=== PATIENT | male | born 1955 | race Caucasian/White ===

== ENCOUNTER 2018-01-08 11:40 | Emergency (ER) | payer MEDICAID ==
[~2018-01-08] VITALS: Ht 182.9 cm; Wt 100.0 kg
[2018-01-08 12:19] VITALS: BP 119/65; PULSE 79; RESP 16; TEMP 98.1; O2SAT 99
[2018-01-08] MEDS ORDERED: TEMA7.5C9 PO (12:34)
[2018-01-08] MEDS ORDERED: ASPI-516 CHEW (12:34)
[2018-01-08] MEDS ORDERED: PREG25 PO (12:34)
[2018-01-08] MEDS ORDERED: SIMV5TAB3 PO (12:34)
[2018-01-08] MEDS ORDERED: CYCL5TAB PO (12:34)
[2018-01-08] MEDS ORDERED: CITA10TA4 PO (12:34)
[2018-01-08] MEDS ORDERED: JANU50TA8 PO (12:35)
[2018-01-08] MEDS ORDERED: LANTUS2P SQ (12:37)
--- NOTE | 2018-01-08 13:03 | PD ---
HPI Chief Complaint: Skin Problem Time Seen by Provider: 12:54 Travel History International Travel<30 days: No Contact w/Intl Traveler<30days: No Traveled to known affect area: No History of Present Illness HPI 62-year-old male presents to the ED for evaluation of 2 day history of stinging , burning, erythematous vesicular rash of the right hip. Patient states the pain is burning, rated 8/10. No alleviating or exacerbating factors reported. Patient denies numbness, tingling, weakness, limitations of range of motion, or injury to the extremity. Denies fever, chills, nausea, vomiting. He endorses history of chickenpox in childhood. He has not received the shingles vaccination. REPLACED BY [facility] Social History Tobacco Use: No Allergies-Medications (Allergen,Severity, Reaction): Coded Allergies: acetaminophen (Verified Allergy, Severe, Anaphylaxis, 01/08/18) Reported Meds & Prescriptions Reported Meds & Active Scripts Active Valacyclovir (Valacyclovir HCl) 1,000 Mg Tab 1,000 Mg PO TID 7 Days Reported Lantus Inj (Insulin Glargine) 1,000 Unit/10 Ml Vial 34 Units SQ HS Janumet (Sitagliptin-Metformin) 50-1,000 Mg Tab 1 Tab PO BID Restoril (Temazepam) 7.5 Mg Cap 7.5 Mg PO HS PRN Flexeril (Cyclobenzaprine HCl) 5 Mg Tab 5 Mg PO TID Citalopram (Citalopram Hydrobromide) 10 Mg Tab 10 Mg PO DAILY Simvastatin 5 Mg Tab 5 Mg PO DAILY Aspirin 81 Mg Chew 81 Mg CHEW DAILY Lyrica (Pregabalin) 25 Mg Cap 25 Mg PO TID NEB Review of Systems Except as stated in HPI: all other systems reviewed are Neg Physical Exam Narrative GENERAL: Well-nourished, well-developed white male in no acute distress. SKIN: Focused skin assessment warm/dry. There is a coin shaped field of erythema over the right hip upon which several vesicles are present. There are a few single vesicles and crusts scattered over the upper leg. HEAD: Normocephalic. EYES: No scleral icterus. No injection or drainage. NECK: Supple, trachea midline. No JVD or lymphadenopathy. CARDIOVASCULAR: Regular rate and rhythm without murmurs, gallops, or rubs. RESPIRATORY: Breath sounds equal bilaterally. No accessory muscle use. GASTROINTESTINAL: Abdomen soft, non-tender, nondistended. MUSCULOSKELETAL: No cyanosis, or edema. BACK: Nontender without obvious deformity. No CVA tenderness. Data Data Last Documented VS Vital Signs Date Time Temp Pulse Resp B/P (MAP) Pulse Ox O2 Delivery O2 Flow Rate FiO2 01/08/18 12:19 98.1 79 16 119/65 (83) 99 Orders Orders Ed Discharge Order (01/08/18 13:04) MDM Medical Decision Making Medical Screen Exam Complete: Yes Emergency Medical Condition: Yes Differential Diagnosis Herpes zoster versus contact dermatitis versus secondary cellulitis versus other Narrative Course 62-year-old male presents to the ED for evaluation of 2 day history of pustular , burning rash of the right hip. Vitals reviewed. Physical exam consistent with herpes zoster. Patient is prescribe valacyclovir thousand milligrams 3 times daily 7 days. He is warned to avoid sensitive populations, monitor for secondary infection, follow with the primary care provider, return for worsening symptoms. He indicated understanding of instructions. He is stable and discharged home. Diagnosis Primary Impression: Shingles Qualified Codes: B02.9 - Zoster without complications Referrals: Primary Care Physician Patient Instructions: General Instructions, Shingles (ED) Additional Instructions: Rest, hydrate. Keep the rash clean, dry and covered. Monitor for signs of secondary infection as discussed. Avoid exposure sensitive populations such as young children or the elderly until rash clears. Begin antiviral medication today and take them until every pill is gone. Follow-up with your primary care provider. Return to the ED for worsening symptoms or any urgent or emergent medical condition. Med/Other Pt SpecificInfo: Prescription(s) given Scripts Valacyclovir (Valacyclovir) 1,000 Mg Tab 1000 MG PO TID for Mgmt Viral Infection for 7 Days, #21 TAB 0 Refills Prov: Jamal Ochoa MD 01/08/18 Disposition: 01 DISCHARGE HOME Condition: Stable Yoli Zambrano January 08, 2018 13:03
[2018-01-08] MEDS ORDERED: VALA1TAB PO (13:04)
== END 2018-01-08 13:27 | disposition home or self-care (01) ==
LOC: NEPK 11:40
DX: B02.9 Zoster without complications (principal)
CPT/HCPCS: 99283